=== PATIENT | female | born 1955 | race Asian ===

== ENCOUNTER 2016-11-16 11:55 | Emergency (ER) | payer OTHER ==
[2016-11-16 12:06] VITALS: TEMP 98.2; BMI 29.2
--- NOTE | 2016-11-16 12:11 | PDOC ---
History of Present Illness - General History Source: Patient Exam Limitations: No Limitations - History of Present Illness Initial Comments: 11/16/16 12:28 Patient is a 61 year old female with no pmhx who presents to the ED with intermittent dizziness for 2 weeks and nausea and vomiting since yesterday. Patient states that she woke up this morning feeling dizzy. She states that yesterday she took meclizine for vertigo given to her by a friend. She also reports nausea, vomiting and dizziness. Patient states that she has an appointment with her PMD this week. SH - former smoker PSH - breast lump sx ALL - [facility] PMD - Dr. Betty Merino <Terese Xie - Last Filed: 11/16/16 12:34> <Ravin Conway - Last Filed: 11/16/16 15:08> - General Chief Complaint: Lightheaded Stated Complaint: EMPLOYEE, VERTIGO Time Seen by Provider: 11/16/16 12:11 Past History <Terese Xie - Last Filed: 11/16/16 12:34> - Past Medical History Other medical history: DENIES. - Psycho/Social/Smoking Cessation Hx Suicidal Ideation: No Smoking Status: No Smoking History: Former smoker Have you smoked in the past 12 months: No Number of Cigarettes Smoked Daily: 0 Information on smoking cessation initiated: No <Ravin Conway - Last Filed: 11/16/16 15:08> - Past Medical History Allergies/Adverse Reactions: Allergies Allergy/AdvReac Type Severity Reaction Status Date / Time No Known Allergies Allergy Verified 11/16/16 12:01 Home Medications: Ambulatory Orders Budesonide [Rhinocort Aqua] 8.6 gm NS HS #1 spray.pump 07/10/15 Meclizine HCl [Antivert -] 25 mg PO TID #90 tablet 11/16/16 Ondansetron [Zofran *Odt*] 8 mg SL TID #30 od.tablet 11/16/16 Review of Systems - Review of Systems Able to Perform ROS?: Yes Comments:: 11/16/16 12:28 GENERAL/CONSTITUTIONAL: No fever or chills. No weakness. HEAD, EYES, EARS, NOSE AND THROAT: No change in vision. No ear pain or discharge. No sore throat. CARDIOVASCULAR: No chest pain or shortness of breath. RESPIRATORY: No cough, wheezing, or hemoptysis. GASTROINTESTINAL: +nausea, vomiting. No diarrhea or constipation. GENITOURINARY: No dysuria, frequency, or change in urination. MUSCULOSKELETAL: No joint or muscle swelling or pain. No neck or back pain. SKIN: No rash NEUROLOGIC: +vertigo. No headache, loss of consciousness, or change in strength/ sensation. ENDOCRINE: No increased thirst. No abnormal weight change. HEMATOLOGIC/LYMPHATIC: No anemia, easy bleeding, or history of blood clots. ALLERGIC/IMMUNOLOGIC: No hives or skin allergy. <Terese Xie - Last Filed: 11/16/16 12:34> *Physical Exam - Vital Signs Last Vital Signs Temp Pulse Resp BP Pulse Ox 98.2 F 79 19 159/93 99 11/16/16 12:01 11/16/16 12:11/16/16 12:11/16/16 12:11/16/16 12:01 - Physical Exam Comments: 11/16/16 12:29 GENERAL: Awake, alert, and fully oriented, in no acute distress HEAD: No signs of trauma EYES: +nystagmus. PERRLA, EOMI, sclera anicteric, conjunctiva clear ENT: Auricles normal inspection, hearing grossly normal, nares patent, oropharynx clear without exudates. Moist mucosa NECK: Normal ROM, supple, no lymphadenopathy, JVD, or masses LUNGS: Breath sounds equal, clear to auscultation bilaterally. No wheezes, and no crackles HEART: Regular rate and rhythm, normal S1 and S2, no murmurs, rubs or gallops ABDOMEN: Soft, nontender, normoactive bowel sounds. No guarding, no rebound. No masses EXTREMITIES: Normal range of motion, no edema. No clubbing or cyanosis. No cords, erythema, or tenderness NEUROLOGICAL: Cranial nerves II through XII grossly intact. Normal speech. SKIN: Warm, Dry, normal turgor, no rashes or lesions noted. <Terese Xie - Last Filed: 11/16/16 12:34> - Vital Signs Last Vital Signs Temp Pulse Resp BP Pulse Ox 98.2 F 79 19 159/93 99 11/16/16 12:01 11/16/16 12:11/16/16 12:11/16/16 12:01 11/16/16 12:01 <Ravin Conway - Last Filed: 11/16/16 15:08> ED Treatment Course - LABORATORY CBC & Chemistry Diagram: 11/16/16 12:27 11/16/16 12:27 <Ravin Conway - Last Filed: 11/16/16 15:08> Medical Decision Making - Medical Decision Making 11/16/16 12:34 Patient is a 61 year old female with no pmhx who presents to the ED with intermittent dizziness for 2 weeks and nausea and vomiting since yesterday. Plan - IVF - CT head - blood work - Meclizine - Reassess <Terese Xie - Last Filed: 11/16/16 12:34> *DC/Admit/Observation/Transfer - Attestations Scribe Attestion: 11/16/16 12:30 Documentation prepared by NAZARIO Kerr, acting as medical office coordinator for Ravin Conway DO. <Terese Xie - Last Filed: 11/16/16 12:34> - Discharge Dispostion Admit: No - Attestations Physician Attestion: 11/16/16 12:11 I, Dr. Ravin Conway, attest that this document has been prepared under my direction and personally reviewed by me in its entirety. I further attest, that it accurately reflects all work, treatment, procedures and medical decision -making performed by me. <Ravin Conway - Last Filed: 11/16/16 15:08> Diagnosis at time of Disposition: Vertigo - Discharge Dispostion Disposition: HOME Condition at time of disposition: Improved - Prescriptions Prescriptions: Meclizine HCl [Antivert -] 25 mg PO TID #90 tablet Ondansetron [Zofran *Odt*] 8 mg SL TID #30 od.tablet - Referrals Referrals: Betty Merino MD [Staff Physician] - - Patient Instructions Printed Discharge Instructions: DI for Vertigo Additional Instructions: Mrs Saavedra - Use the antivert for dizziness and the zofran for nausea. Follow up with Dr. Sierra and Dr. Mccullough Return to us if worse or new symptoms occur- Best- Dr. Ravin Conway
[2016-11-16] MEDS ORDERED: MECLIZINE HCL 25 MG TABLET (FP) PO ONE (12:24)
[2016-11-16] MEDS ORDERED: ONDANSETRON 4 MG/2 ML VIAL IVPUSH ONE ×2 (12:24→15:42)
[2016-11-16] MEDS ORDERED: SODIUM CHLORIDE 1,000 ML IV STA (12:25)
[2016-11-16] MEDS ORDERED: ONDANSETRON 4 MG/2 ML VIAL ONE ×2 (12:39→15:42)
[2016-11-16] MEDS ORDERED: MECLIZINE HCL 25 MG TABLET (FP) ONE (12:39)
[2016-11-16 12:51] LABS: BASOPHIL 0.7 % (0-2.0); EOSINOPHIL 0.3 % (0-4.5); MCH 30.1 pg (25.7-33.7); MCHC 33.5 g/dl (32.0-36.0); MEAN CELL VOLUME 89.9 fl (80-96); MEAN PLT VOLUME 8.3 fl (7.5-11.1); NEUTROPHILS 64.3 % (42.8-82.8); PLATELET COUNT 299 K/MM3 (134-434); RDW 14.2 % (11.6-15.6); WHITE BLOOD COUNT 9.5 K/mm3 (4.0-10.0)
[2016-11-16 13:04] LABS: INR 1.04 (0.82-1.09); PROTHROMBIN TIME (PATIENT) 11.4 SEC (9.98-11.88)
[2016-11-16 13:18] LABS: ALBUMIN 3.9 g/dl (3.4-5.0); ANION GAP 8 (8-16); CALCIUM 9.3 mg/dL (8.5-10.1); CO2 30 mmol/L (21-32); CREATININE 0.6 mg/dL (0.55-1.02); GLUCOSE,RANDOM 115 mg/dL (74-106); SGOT/AST 21 U/L (15-37); SGPT/ALT 38 U/L (12-78)
[2016-11-16 13:20] LABS: ALK PHOS 82 U/L (45-117); BILIRUBIN,TOTAL 0.6 mg/dL (0.2-1.0); TOT PROT 7.6 g/dl (6.4-8.2)
[2016-11-16 15:49] VITALS: BP 153/70; PULSE 62
== END 2016-11-16 15:49 | disposition home or self-care (01) ==
LOC: JER 11:55
PROC: 3E0337Z Introduction of Electrolytic and Water Balance Substance into Peripheral Vein, Percutaneous Approach (ICD-10-PCS; principal; 2016-11-16)
PROC: 3E033GC Introduction of Other Therapeutic Substance into Peripheral Vein, Percutaneous Approach (ICD-10-PCS; 2016-11-16)
DX: R42 Dizziness and giddiness (principal)
CPT/HCPCS: 36415; 70450-TC; 80053; 83036; 83690; 85025; 85610; 99283-25

== ENCOUNTER 2020-02-07 11:02 | Emergency (ER) | payer OTHER ==
[2020-02-07 11:07] VITALS: BP 142/79; PULSE 86; TEMP 98.6; BMI 29.2
== END 2020-02-07 12:15 | disposition home or self-care (01) ==
LOC: JERFT 11:02
DX: M79.672 Pain in left foot (principal)
CPT/HCPCS: 73630-TC-LT; 99283-25

== ENCOUNTER 2024-12-13 06:08 | Day surgery (SDC) | payer BC ==
[2024-12-12 11:17] VITALS: BMI 28.3
[2024-12-13 10:15] VITALS: RESP 16
[2024-12-13 10:48] VITALS: BP 100/54; PULSE 73; TEMP 98
== END 2024-12-13 11:03 | disposition home or self-care (01) ==
LOC: JASU-ENDO 06:08
PROVIDERS: ATTEND Internal Medicine Gastroenterology
PROC: 0DBN8ZX Excision of Sigmoid Colon, Via Natural or Artificial Opening Endoscopic, Diagnostic (ICD-10-PCS; 2024-12-13)
PROC: 0DBL8ZX Excision of Transverse Colon, Via Natural or Artificial Opening Endoscopic, Diagnostic (ICD-10-PCS; 2024-12-13)
PROC: 0DBK8ZX Excision of Ascending Colon, Via Natural or Artificial Opening Endoscopic, Diagnostic (ICD-10-PCS; principal; 2024-12-13 09:00)
DX: Z12.11 Encounter for screening for malignant neoplasm of colon (principal); D12.3 Benign neoplasm of transverse colon; K63.5 Polyp of colon; K57.30 Diverticulosis of large intestine without perforation or abscess without bleeding; K64.8 Other hemorrhoids
CPT/HCPCS: 82962; 88305-TC